=== PATIENT | female | born 1960 | race Caucasian/White ===

== ENCOUNTER 2018-09-01 07:46 | Day surgery (SDC) | payer OTHER ==
[2018-09-01] MEDS ORDERED: MIDAZOLAM 1 MG/ML 2 ML INJ ×2 (09:39→09:40)
[2018-09-01] MEDS ORDERED: FENTAnyl 50 MCG/ML VIAL (09:40)
== END 2018-09-01 11:30 | disposition home or self-care (01) ==
LOC: GIL 07:46
DX: Z12.11 Encounter for screening for malignant neoplasm of colon (principal); K64.4 Residual hemorrhoidal skin tags
CPT/HCPCS: 45378